=== PATIENT | female | born 1980 | race Caucasian/White ===

== ENCOUNTER 2016-07-06 09:48 | Emergency (ER) | payer MEDICAID ==
[~2016-07-06] VITALS: Ht 165.1 cm; Wt 88.5 kg
[~2016-07-06 09:48] MED LIST: LEVAQUIN500 MG PO; MOTRIN600 MG PO; PHENERGAN25 M3 PO; VICODIN-ES1 TAB PO
[2016-07-06 10:58] VITALS: BP 123/85
[2016-07-06] MEDS ORDERED: NACL 0.9% 1,000 ML IV ONE (11:45)
--- NOTE | 2016-07-06 12:45 | NUR ---
PATIENT PRESENTS TO ED WITH C/O VOMITING >7 EPISODES X YESTERDAY---DIARRHEA X5 EPISODES TODAY. SKIN IS PINK/WARM/DRY; AAOX4 WITH EVEN AND STEADY GAIT; LUNGS CLEAR BL; HR EVEN AND REGULAR; PT DENIES ANY CP, SOB, OR COUGH AT THIS TIME; PATIENT POSITIONED FOR COMFORT; HOB ELEVATED; BEDRAILS UP X2; BED DOWN. SAFETY PRECAUTION INSTITUTED.NEEDS ATTENDED.ER MD MADE AWARE OF PT STATUS.
[2016-07-06] MEDS ORDERED: ONDANSETRON 4 MG/2 ML VIAL IVP ONE (13:05)
--- NOTE | 2016-07-06 13:15 | NUR ---
PT AAO IVF ONGOING WELL TOLERATED, PT ABLE TO DRINK WATER 240ML, NO VOMITTING NOTED WITH ONE EPISODES OF NAUSEA EARLIER.
--- NOTE | 2016-07-06 13:44 | NUR ---
PT WANTS TO GO HOME. IV STILL INFUSING. DR WHITING MADE AWARE AND SAID IT'S OKAY TO DISCONTINUE IVF.
--- NOTE | 2016-07-06 13:46 | NUR ---
Patient discharged with v/s stable. Written and verbal after care instructions given and explained. Patient alert, oriented and verbalized understanding of instructions. Ambulatory with steady gait. All questions addressed prior to discharge. ID band removed. Patient advised to follow up with PMD. Rx of ZOFRAN AND IMMODIUM given. Patient educated on indication of medication including possible reaction and side effects. Opportunity to ask questions provided and answered.
[2016-07-06 13:47] VITALS: BP 123/78
== END 2016-07-06 13:46 | disposition home or self-care (01) ==
LOC: MED 09:48
DX: R11.2 Nausea with vomiting, unspecified (principal); R19.7 Diarrhea, unspecified; R50.9 Fever, unspecified; K21.9 Gastro-esophageal reflux disease without esophagitis; Z90.49 Acquired absence of other specified parts of digestive tract; Z88.5 Allergy status to narcotic agent
CPT/HCPCS: 81002; 81025; 96361; 96374; 99284; J2405; J7030

== ENCOUNTER 2017-07-22 12:13 | Emergency (ER) | payer MEDICAID ==
[~2017-07-22] VITALS: Ht 165.1 cm; Wt 96.7 kg
[~2017-07-22 12:13] MED LIST changes: +IBUP-2213 PO; -LEVAQUIN500 MG PO; -MOTRIN600 MG PO; -PHENERGAN25 M3 PO; -VICODIN-ES1 TAB PO
[2017-07-22 12:34] VITALS: BP 124/78
--- NOTE | 2017-07-22 12:40 | NUR ---
PT AMBULATES TO BED 2
--- NOTE | 2017-07-22 12:45 | NUR ---
37/F BIB SELF C/O INTERMITTENT MIDEPIGASTRIC PAIN 10/07 WITH VOMITING YESTERDAY HX; PANCREATITIS RX; DENIES
[2017-07-22] MEDS ORDERED: KETOROLAC 30 MG/ML VIAL IVP ONE (13:05)
[2017-07-22] MEDS ORDERED: NACL 0.9% 1,000 ML IV ONE (13:05)
[2017-07-22 13:07] LABS: BASOPHILS # (AUTO) 0.2 K/uL (0.00-0.22); BASOPHILS % (AUTO) 2.1 % (0.0-2.0); EOSINOPHILS # (AUTO) 0.1 K/uL (0-0.4); EOSINOPHILS % (AUTO) 1.2 % (0.0-4.0); HEMATOCRIT 42.7 % (36-48); HEMOGLOBIN 13.8 g/dL (12.0-16.0); LYMPHOCYTES # (AUTO) 2.6 K/uL (2.5-16.5); MEAN CORPUSCULAR HEMOGLOBIN 28 pg (27-31); MEAN CORPUSCULAR HGB CONC 32 g/dL (33-37); MEAN CORPUSCULAR VOLUME 87 fL (80-94); MONOCYTES # (AUTO) 0.4 K/uL (0.8-1.0); MONOCYTES % (AUTO) 4.5 % (1.7-9.3); NEUTROPHILS % (AUTO) 61.2 % (42.2-75.2); PLATELET COUNT (AUTO) 244 K/uL (140-450); RED BLOOD CELL COUNT(AUTO) 4.93 MIL/uL (4.20-5.40); RED CELL DISTRIBUTION WIDTH 12.6 % (11.6-13.7); WHITE BLOOD COUNT (AUTO) 8.3 K/uL (4.8-10.8)
[2017-07-22 13:21] LABS: ANION GAP 13.7 (8-16); CARBON DIOXIDE 24.8 mmol/L (21-32); CREATININE 0.8 mg/dL (0.6-1.3); POTASSIUM 3.5 mmol/L (3.5-5.1)
[2017-07-22 13:27] LABS: ALBUMIN 3.5 g/dL (3.4-5.0); TOTAL BILIRUBIN 0.6 mg/dL (0.0-1.0)
[2017-07-22 14:49] VITALS: BP 119/70
--- NOTE | 2017-07-22 14:51 | NUR ---
Patient discharged with v/s stable. Written and verbal after care instructions given and explained. Patient alert, oriented and verbalized understanding of instructions. Ambulatory with steady gait. All questions addressed prior to discharge. ID band removed. Patient advised to follow up with PMD. Rx of zofran, prilosec given. Patient educated on indication of medication including possible reaction and side effects. Opportunity to ask questions provided and answered.
== END 2017-07-22 14:51 | disposition home or self-care (01) ==
LOC: MED 12:13
DX: R10.13 Epigastric pain (principal); R11.2 Nausea with vomiting, unspecified; K21.9 Gastro-esophageal reflux disease without esophagitis; Z79.899 Other long term (current) drug therapy; Z88.5 Allergy status to narcotic agent; Z90.49 Acquired absence of other specified parts of digestive tract
CPT/HCPCS: 36415; 80053; 81002; 81025; 83690; 84702; 85025; 96361; 96374; 99284; J1885; J7030

== ENCOUNTER 2018-08-26 12:44 | Emergency (ER) | payer MEDICAID ==
[~2018-08-26] VITALS: Ht 167.6 cm; Wt 89.8 kg
[2018-08-26 12:52] VITALS: BP 114/49
--- NOTE | 2018-08-26 12:57 | NUR ---
pt ambulated to er bed 06
--- NOTE | 2018-08-26 13:05 | NUR ---
PATIENT PRESENTS TO ED WITH C/O N/V X2 WEEKS. PT STATES SHE VOMIT WHEN SHE EATS. DENIES FEVER, DIARRHA, PAIN, DIZZY. MEDHX:PANCREATITIS . VSS; PATIENT POSITIONED FOR COMFORT; HOB ELEVATED; BEDRAILS UP X2; BED DOWN. ER MD MADE AWARE OF PT STATUS.
--- NOTE | 2018-08-26 13:37 | NUR ---
Patient being evaluated by physician at bedside.
--- NOTE | 2018-08-26 14:25 | NUR ---
PT VOMITED SMALL AMOUNT OF EMESIS, MD AWARE.
--- NOTE | 2018-08-26 14:35 | NUR ---
pt is taken to x-ray.
[2018-08-26 14:52] LABS: BASOPHILS % (AUTO) 0.6 % (0.0-2.0); EOSINOPHILS # (AUTO) 0.2 K/uL (0-0.4); EOSINOPHILS % (AUTO) 3.6 % (0.0-4.0); HEMATOCRIT 41.6 % (36-48); LYMPHOCYTES # (AUTO) 2.2 K/uL (2.5-16.5); LYMPHOCYTES % (AUTO) 35.1 % (20.5-51.1); MEAN CORPUSCULAR HEMOGLOBIN 30 pg (27-31); MEAN CORPUSCULAR HGB CONC 34 g/dL (33-37); MONOCYTES # (AUTO) 0.5 K/uL (0.8-1.0); MONOCYTES % (AUTO) 7.2 % (1.7-9.3); NEUTROPHILS # (AUTO) 3.4 K/uL (1.8-7.7); NEUTROPHILS % (AUTO) 53.5 % (42.2-75.2); PLATELET COUNT (AUTO) 206 K/uL (140-450); RED BLOOD CELL COUNT(AUTO) 4.67 MIL/uL (4.20-5.40); RED CELL DISTRIBUTION WIDTH 13.1 % (11.6-13.7); WHITE BLOOD COUNT (AUTO) 6.3 K/uL (4.8-10.8)
--- NOTE | 2018-08-26 15:22 | NUR ---
X-RAY NOT TAKEN PER X-RAY TECH, PT REFUSED DUE TO PT THOUGH SHE WAS , EVEN THOUGH WE TOLD HER SHE IS NOT FROM THE URINE PREGNACY TEST RESULT IS NEGATIVE. PT STILL REFUSED. DR. WESTBROOK MADE AWARE.
[2018-08-26 15:28] LABS: CARBON DIOXIDE 28.7 mmol/L (21-32); CREATININE 0.7 mg/dL (0.6-1.3); POTASSIUM 3.7 mmol/L (3.5-5.1)
[2018-08-26 15:36] LABS: ALBUMIN 3.3 g/dL (3.4-5.0); TOTAL BILIRUBIN 0.6 mg/dL (0.0-1.0)
[2018-08-26 15:51] VITALS: BP 117/71
--- NOTE | 2018-08-26 15:51 | NUR ---
Patient discharged with v/s stable. Written and verbal after care instructions given and explained. All questions addressed prior to discharge. Rx of ZOFRAN given. Patient educated on indication of medication including possible reaction and side effects. ID band removed. Patient advised to follow up with PMD.
== END 2018-08-26 15:51 | disposition home or self-care (01) ==
LOC: MED 12:44
DX: R11.2 Nausea with vomiting, unspecified (principal); E86.0 Dehydration; K21.9 Gastro-esophageal reflux disease without esophagitis; Z88.5 Allergy status to narcotic agent; Z79.899 Other long term (current) drug therapy; Z90.49 Acquired absence of other specified parts of digestive tract
CPT/HCPCS: 36415; 80053; 81025; 84702; 85025; 99283

== ENCOUNTER 2018-11-28 14:40 | Emergency (ER) | payer MEDICAID ==
[~2018-11-28] VITALS: Ht 165.1 cm; Wt 90.7 kg
[2018-11-28 14:53] VITALS: BP 134/94
--- NOTE | 2018-11-28 14:59 | NUR ---
Patient ambulated to bed 1. RN evaluating patient at bedside.
[2018-11-28] MEDS ORDERED: KETOROLAC 15 MG/ML VIAL IVP ONE (15:25)
[2018-11-28 15:42] LABS: BASOPHILS % (AUTO) 0.2 % (0.0-2.0); EOSINOPHILS # (AUTO) 0.2 K/uL (0-0.4); EOSINOPHILS % (AUTO) 3.1 % (0.0-4.0); HEMATOCRIT 39.7 % (36-48); HEMOGLOBIN 13.4 g/dL (12.0-16.0); LYMPHOCYTES # (AUTO) 2.9 K/uL (2.5-16.5); LYMPHOCYTES % (AUTO) 38.5 % (20.5-51.1); MEAN CORPUSCULAR HEMOGLOBIN 31 pg (27-31); MEAN CORPUSCULAR HGB CONC 34 g/dL (33-37); MEAN CORPUSCULAR VOLUME 90.8 fL (80-94); MONOCYTES # (AUTO) 0.4 K/uL (0.8-1.0); MONOCYTES % (AUTO) 5.7 % (1.7-9.3); NEUTROPHILS # (AUTO) 3.9 K/uL (1.8-7.7); NEUTROPHILS % (AUTO) 52.5 % (42.2-75.2); PLATELET COUNT (AUTO) 179 K/uL (140-450); RED BLOOD CELL COUNT(AUTO) 4.37 MIL/uL (4.20-5.40); RED CELL DISTRIBUTION WIDTH 13.3 % (11.6-13.7); WHITE BLOOD COUNT (AUTO) 7.5 K/uL (4.8-10.8)
--- NOTE | 2018-11-28 15:51 | NUR ---
DR. LYNN EXAMINED PT. PT REFUSED TORADOL. PT SAID OK FOR HER PAIN.
[2018-11-28 16:02] LABS: ALBUMIN 3.1 g/dL (3.4-5.0); ANION GAP 11.5 (8-16); CARBON DIOXIDE 27.9 mmol/L (21-32); CREATININE 0.7 mg/dL (0.6-1.3); POTASSIUM 3.4 mmol/L (3.5-5.1); TOTAL BILIRUBIN 0.6 mg/dL (0.0-1.0)
--- NOTE | 2018-11-28 16:08 | NUR ---
PT WAS TAKEN TO XRAY.
[2018-11-28 16:13] LABS: BILIRUBIN,DIRECT 0.3 mg/dL (0.0-0.3)
--- NOTE | 2018-11-28 17:21 | NUR ---
PT GOT MOM'S CALL AND RUSHED TO GO HOME. PT REQUESTED AND SIGNED AMA. PT WALKED OUT ED IN STEADY GAIT.
== END 2018-11-28 17:21 | disposition left against medical advice (07) ==
LOC: MED 14:40
DX: R07.81 Pleurodynia (principal); R74.0 Nonspecific elevation of levels of transaminase and lactic acid dehydrogenase [LDH]; M54.6 Pain in thoracic spine; K21.9 Gastro-esophageal reflux disease without esophagitis; Z90.49 Acquired absence of other specified parts of digestive tract; Z88.5 Allergy status to narcotic agent; Z79.899 Other long term (current) drug therapy
CPT/HCPCS: 36415; 71046; 80053; 81025; 82248; 83690; 84484; 85025; 85379; 93005; 99284; J1885

== ENCOUNTER 2019-05-15 14:33 | Emergency (ER) | payer MEDICAID ==
[~2019-05-15] VITALS: Ht 175.3 cm; Wt 96.6 kg
[2019-05-15 14:59] VITALS: BP 140/77
[2019-05-15] MEDS ORDERED: SODIUM CHLORIDE FLUSH 10 ML SYR IVF STA (15:02)
--- NOTE | 2019-05-15 15:05 | NUR ---
PT SENT TO ER LOBBY TO WAIT FOR AVAILABLE BED.
[2019-05-15 15:23] LABS: BASOPHILS % (AUTO) 0.3 % (0.0-2.0); EOSINOPHILS # (AUTO) 0.3 K/uL (0-0.4); EOSINOPHILS % (AUTO) 3.3 % (0.0-4.0); HEMOGLOBIN 14.5 g/dL (12.0-16.0); LYMPHOCYTES # (AUTO) 3.1 K/uL (2.5-16.5); LYMPHOCYTES % (AUTO) 36.8 % (20.5-51.1); MEAN CORPUSCULAR HEMOGLOBIN 30 pg (27-31); MEAN CORPUSCULAR HGB CONC 34 g/dL (33-37); MEAN CORPUSCULAR VOLUME 89.3 fL (80-94); MONOCYTES # (AUTO) 0.4 K/uL (0.8-1.0); MONOCYTES % (AUTO) 4.7 % (1.7-9.3); NEUTROPHILS # (AUTO) 4.6 K/uL (1.8-7.7); NEUTROPHILS % (AUTO) 54.9 % (42.2-75.2); PLATELET COUNT (AUTO) 226 K/uL (140-450); RED BLOOD CELL COUNT(AUTO) 4.82 MIL/uL (4.20-5.40); RED CELL DISTRIBUTION WIDTH 12.6 % (11.6-13.7); WHITE BLOOD COUNT (AUTO) 8.4 K/uL (4.8-10.8)
[2019-05-15 15:48] LABS: ALBUMIN 3.6 g/dL (3.4-5.0); ANION GAP 13.4 (8-16); CARBON DIOXIDE 26.3 mmol/L (21-32); POTASSIUM 3.7 mmol/L (3.5-5.1); TOTAL BILIRUBIN 0.3 mg/dL (0.0-1.0)
[2019-05-15 16:51] LABS: APPEARANCE,URINE CLEAR (CLEAR); BILIRUBIN,URINE NEGATIVE (NEGATIVE); BLOOD, URINE NEGATIVE (NEGATIVE); COLOR,URINE YELLOW (YELLOW); LEUKOCYTE ESTERASE ,URINE NEGATIVE (NEGATIVE); NITRITE, URINE NEGATIVE (NEGATIVE); UGLUCOSE NEGATIVE (NEGATIVE)
--- NOTE | 2019-05-15 16:52 | NUR ---
PT AMBULATED TO ER BED 09
--- NOTE | 2019-05-15 17:21 | NUR ---
pt going to xray via wheelchair
--- NOTE | 2019-05-15 17:25 | NUR ---
per dr parsons, no need for iv or iv flush. standard order was placed upon triage.
--- NOTE | 2019-05-15 17:38 | NUR ---
PT RETURNED FROM XRAY
--- NOTE | 2019-05-15 17:43 | NUR ---
c/o epigastric pain 01/07 since 05/02 intermittently. Pt had ERCP done at [facility] for stone stuck in bile duct. Pt states she has been having epigastric pain since procedure, radiating to LUQ and L side of back. bowel sounds active in all 4 quadrants. soft and round. denies n/v/d, headache, sob, or cp. pt alert and awake. vs stable. ambulatory with steady gait. hx pancreatitis
[2019-05-15] MEDS ORDERED: PANTOPRAZOLE 40 MG TABEC PO ONE (17:50)
--- NOTE | 2019-05-15 17:55 | NUR ---
pantroprazole administered po
[2019-05-15 18:11] LABS: CREATININE 0.8 mg/dL (0.6-1.3)
[2019-05-15 18:25] VITALS: BP 132/72
--- NOTE | 2019-05-15 18:25 | NUR ---
NADR AT THIS TIME, PAIN 4/10
--- NOTE | 2019-05-15 18:25 | NUR ---
Patient discharged with v/s stable. Written and verbal after care instructions given and explained REGARDING GERD. Patient alert, oriented and verbalized understanding of instructions. Ambulatory with steady gait. All questions addressed prior to discharge. ID band removed. Patient advised to follow up with PMD. Rx of TRAMADOL, MINERAL OIL, AND PROTONIX given. Patient educated on indication of medication including possible reaction and side effects. Opportunity to ask questions provided and answered. PT GIVEN COPY OF LAB RESULTS
== END 2019-05-15 18:25 | disposition home or self-care (01) ==
LOC: MED 14:33
DX: K29.70 Gastritis, unspecified, without bleeding (principal); K59.00 Constipation, unspecified; K21.9 Gastro-esophageal reflux disease without esophagitis; Z90.49 Acquired absence of other specified parts of digestive tract; Z98.890 Other specified postprocedural states; Z79.899 Other long term (current) drug therapy; Z88.5 Allergy status to narcotic agent
CPT/HCPCS: 36415; 74022; 80053; 81003; 81025; 83690; 85025; 99284

== ENCOUNTER 2019-06-16 21:25 | Emergency (ER) | payer MEDICAID ==
[~2019-06-16] VITALS: Ht 167.6 cm; Wt 96.2 kg
[2019-06-16 21:45] VITALS: BP 128/82
--- NOTE | 2019-06-16 21:55 | NUR ---
AMBULATES TO BED 08 WITH UPRIGHT STEADY GAIT. URINE CUP PROVIDED. REPORT GIVEN TO FABIO RAYMOND.
--- NOTE | 2019-06-16 22:04 | NUR ---
39/F C/O INTERMITTENT VAGINAL SPOTTING X 4 DAYS. PT STATES SHE IS 7 WEEKS , LMP OF 04/30/19. ONLY SEES LIGHT PINK SMEARS WHILE WIPING AFTER URINATION. OTHERWISE NO SPOTTING ON UNDERWEAR. STATES INTERMITTENT BILATERAL PELVIC CRAMPY THAT IS MILD, NO PAIN AT THIS TIME. A1. PMH-- RH NEGATIVE RX-- PRENATALS
--- NOTE | 2019-06-16 22:39 | NUR ---
COACH TOUR DRIVER AT BEDSIDE
[2019-06-16 22:56] LABS: BASOPHILS # (AUTO) 0.1 K/uL (0.00-0.22); BASOPHILS % (AUTO) 0.8 % (0.0-2.0); EOSINOPHILS # (AUTO) 0.2 K/uL (0-0.4); EOSINOPHILS % (AUTO) 1.5 % (0.0-4.0); HEMATOCRIT 40.9 % (36-48); HEMOGLOBIN 13.5 g/dL (12.0-16.0); LYMPHOCYTES # (AUTO) 3.4 K/uL (2.5-16.5); LYMPHOCYTES % (AUTO) 29.2 % (20.5-51.1); MEAN CORPUSCULAR HEMOGLOBIN 29 pg (27-31); MEAN CORPUSCULAR HGB CONC 33 g/dL (33-37); MONOCYTES # (AUTO) 0.7 K/uL (0.8-1.0); MONOCYTES % (AUTO) 5.8 % (1.7-9.3); NEUTROPHILS # (AUTO) 7.2 K/uL (1.8-7.7); NEUTROPHILS % (AUTO) 62.7 % (42.2-75.2); PLATELET COUNT (AUTO) 190 K/uL (140-450); WHITE BLOOD COUNT (AUTO) 11.5 K/uL (4.8-10.8)
--- NOTE | 2019-06-16 23:20 | NUR ---
DR VIGIL AT BEDSIDE
[2019-06-16 23:31] LABS: APPEARANCE,URINE CLEAR (CLEAR); BILIRUBIN,URINE NEGATIVE (NEGATIVE); BLOOD, URINE 2+ (NEGATIVE); COLOR,URINE YELLOW (YELLOW); LEUKOCYTE ESTERASE ,URINE NEGATIVE (NEGATIVE); NITRITE, URINE NEGATIVE (NEGATIVE); UGLUCOSE NEGATIVE (NEGATIVE)
--- NOTE | 2019-06-16 23:42 | NUR ---
U/S TECH AT BEDSIDE
--- NOTE | 2019-06-16 23:52 | NUR ---
AT BEDSIDE WITH DR MUSA WAGNER FOR PELVIC EXAM. Addendum: 06/16/19 at 2357 by MARLIN MYSELF PRESENT AT BEDSIDE WITH DR MUSA WAGNER FOR PELVIC EXAM.
[2019-06-16 23:58] VITALS: BP 131/73
[2019-06-17 00:09] LABS: RBC,URINE 0-5 /HPF (0-5); WBC,URINE 0-5 /HPF (0-5)
--- NOTE | 2019-06-17 00:53 | NUR ---
WAITING FOR LAB TO RELEASE RHOGAM
--- NOTE | 2019-06-17 01:15 | NUR ---
RECIEVED REPORT FROM FABIO RAYMOND. ASSUMED CARE AT THIS TIME.
--- NOTE | 2019-06-17 01:26 | NUR ---
RHOGAM INJECTION GIVEN IM TO LT GLUTEUS FRANKO. Addendum: 06/17/19 at 0214 by YASMINE VERBAL CONSENT OBTAINED, VERIFIED BY 2 RNs. VACCINATION INFORMATION EXPLAINED. PT VERBALIZED UNDERSTANDING.
--- NOTE | 2019-06-17 01:36 | NUR ---
PT HAD NADR TO RHOGAM ADMINISTRATION
--- NOTE | 2019-06-17 01:36 | NUR ---
Patient discharged with v/s stable. Written and verbal after care instructions given and explained. Patient verbalized understanding. Ambulatory with steady gait. All questions addressed prior to discharge. Advised to follow up with PMD.
== END 2019-06-17 01:36 | disposition home or self-care (01) ==
LOC: MED 21:25
DX: O20.8 Other hemorrhage in early pregnancy (principal); K21.9 Gastro-esophageal reflux disease without esophagitis; Z90.49 Acquired absence of other specified parts of digestive tract; Z79.899 Other long term (current) drug therapy; Z88.5 Allergy status to narcotic agent; Z3A.01 Less than 8 weeks gestation of pregnancy; Z98.890 Other specified postprocedural states
CPT/HCPCS: 36415; 76817; 81001; 81025; 84702; 85025; 86886; 86900; 86901; 99284; J2790; Q0092

== ENCOUNTER 2020-04-14 10:51 | Emergency (ER) | payer MEDICAID ==
[~2020-04-14] VITALS: Ht 167.6 cm; Wt 90.7 kg
--- NOTE | 2020-04-14 10:55 | NUR ---
PATIENT AMBUALTED TO BED 5.
[2020-04-14 11:00] VITALS: BP 155/55
--- NOTE | 2020-04-14 11:02 | NUR ---
40 YEAR OLD FEMALE COMPLAINS OF RIGHT HAND PAIN X 2 WEEKS. PT STATES THAT HAND WAS SMALL WOUND BUT DID NOT HEAL. PT STATES SITE HAS SMELL, DISCHARGE, AND RANDOMLY BLEEDS. PT AOX4, BREATHING EVEN AND UNLABORED, SKIN WARM AND DRY. BED IN LOWEST POSITION, LOCKED, BED RAIL UPX1. PT UNAWARE OF LAST TETANUS SHOT PMH - DENIES ALLERGIES - NKA
[2020-04-14] MEDS ORDERED: cephALEXin 500 MG CAP PO ONE (11:20)
[2020-04-14] MEDS ORDERED: ACETAMINOPHEN EXTRA STRENGTH 500 MG TAB PO ONE (11:20)
[2020-04-14] MEDS ORDERED: SULFAMETH/TRIMETH DS 800/160MG 1 TAB PO ONE (11:20)
--- NOTE | 2020-04-14 12:20 | NUR ---
Patient discharged with v/s stable. Written and verbal after care instructions about wound infection given and explained. Patient alert, oriented and verbalized understanding of instructions. Ambulatory with steady gait. All questions addressed prior to discharge. ID band removed. Patient advised to follow up with PMD. Rx of bactrim, keflex, naproxen given. Patient educated on indication of medication including possible reaction and side effects. Opportunity to ask questions provided and answered.
[2020-04-14 12:21] VITALS: BP 155/55
== END 2020-04-14 12:20 | disposition home or self-care (01) ==
LOC: MED 10:51
DX: S61.401A Unspecified open wound of right hand, initial encounter (principal); L08.9 Local infection of the skin and subcutaneous tissue, unspecified; L98.0 Pyogenic granuloma; K21.9 Gastro-esophageal reflux disease without esophagitis; Z90.49 Acquired absence of other specified parts of digestive tract; Z79.899 Other long term (current) drug therapy; Z88.5 Allergy status to narcotic agent; X58.XXXA Exposure to other specified factors, initial encounter; Y93.89 Activity, other specified; Y92.89 Other specified places as the place of occurrence of the external cause; Y99.8 Other external cause status
CPT/HCPCS: 73130; 99284

== ENCOUNTER 2022-04-25 10:56 | Emergency (ER) | payer MEDICAID, OTHER ==
[~2022-04-25] VITALS: Ht 165.1 cm; Wt 91.6 kg
[2022-04-25 11:38] VITALS: BP 122/67
--- NOTE | 2022-04-25 11:50 | NUR ---
42 y/o female, c/o right foot pain radiates to digits, area appears red with minimal swelling. pain provokes with movement, sharp 8/10 pain for 1 day. pt states she hit foot on ottoman, no visible deformity. pmh: dm2 allergy: morphine (neck) med: motrin
[2022-04-25] MEDS ORDERED: KETOROLAC 30 MG/ML VIAL IM ONE (13:30)
[2022-04-25] MEDS ORDERED: IBUP-2213 PO (13:34)
[2022-04-25] MEDS ORDERED: NAPR-54 PO (13:34)
[2022-04-25 14:00] VITALS: BP 118/62
--- NOTE | 2022-04-25 14:00 | NUR ---
Patient discharged with v/s stable. Written and verbal after care instructions given and explained. Patient alert, oriented and verbalized understanding of instructions. Ambulatory with CRUTCHES. All questions addressed prior to discharge. ID band removed. Patient advised to follow up with PMD. Rx of NAPROSYN, IBUPROFEN given. Patient educated on indication of medication including possible reaction and side effects. Opportunity to ask questions provided and answered.
--- NOTE | 2022-04-25 14:32 | NUR ---
Note maribell in EDM - 04/25/22 at 1433 by MED1 Patient discharged with v/s stable. Written and verbal after care instructions given and explained. Patient alert, oriented and verbalized understanding of instructions. Ambulatory with CRUTCHES. All questions addressed prior to discharge. ID band removed. Patient advised to follow up with PMD. Rx of NAPROSYN, IBUPROFEN given. Patient educated on indication of medication including possible reaction and side effects. Opportunity to ask questions provided and answered.
== END 2022-04-25 14:00 | disposition home or self-care (01) ==
LOC: MED 10:56
DX: S90.121A Contusion of right lesser toe(s) without damage to nail, initial encounter (principal); X58.XXXA Exposure to other specified factors, initial encounter; Y93.89 Activity, other specified; Y92.89 Other specified places as the place of occurrence of the external cause; Y99.8 Other external cause status
CPT/HCPCS: 73630; 96372; 99283; J1885